=== PATIENT | female | born 1970 | race Caucasian/White ===

== ENCOUNTER 2017-09-10 16:05 | Emergency (ER) | payer BC ==
--- NOTE | 2017-09-10 16:21 | EDPHY ---
H & P Stated Complaint: esophageal stricture Time Seen by Provider: 09/10/17 16:10 HPI/ROS: CHIEF COMPLAINT: Esophageal stricture, un able to swallow HISTORY OF PRESENT ILLNESS: 46-year-old female with a history of esophageal stricture, status post dilation x4 presents with an esophageal obstruction. She was eating [place] fries approximately 1 hr ago. The [place] fries became lodged and she has been unable to swallow saliva. Last dilation was 2 years ago. REVIEW OF SYSTEMS: complete 10 point ROS negative except at noted in the HPI - Personal History LMP (Females 10-55): 22-28 Days Ago Current Tetanus Diphtheria and Acellular Pertussis (TDAP): Yes - Medical/Surgical History Hx Asthma: No Hx Chronic Respiratory Disease: No Hx Diabetes: No Hx Cardiac Disease: No Hx Renal Disease: No Hx Cirrhosis: No Hx Alcoholism: No Hx HIV/AIDS: No Hx Splenectomy or Spleen Trauma: No Other PMH: esophageal stricture - Social History Smoking Status: Never smoked Alcohol Use: Sober Additional Social History: [place] - Physical Exam Exam: General Appearance: Alert, pleasant Eyes: Pupils equal and round, no conjunctival pallor ENT, Mouth: Mucous membranes moist Neck: Normal inspection Respiratory: Lungs are clear to auscultation Cardiovascular: Regular rate and rhythm Gastrointestinal: Abdomen is soft and nontender Neurological: A&O, nonfocal, normal gait Skin: Warm and dry Extremities: Normal inspection Psychiatric: Mood and affect normal Constitutional: Initial Vital Signs Temperature (C) 36.9 C 09/10/17 16:12 Heart Rate 121 H 09/10/17 16:12 Respiratory Rate 18 09/10/17 16:12 Blood Pressure 123/81 H 09/10/17 16:12 O2 Sat (%) 97 09/10/17 16:12 O2 Delivery Mode Room Air Allergies/Adverse Reactions: No Known Allergies Allergy (Unverified 09/10/17 16:11) Home Medications: Medication Instructions Recorded NK [No Known Home Meds] 09/10/17 Medical Decision Making ED Course/Re-evaluation: Glucagon 1mg IV given. Consulted Dr. Osuna 163, if continues to have obstruction, c/b at 1730, plan for endoscopy then. 1740: pt vomited, obstruction relieved. Able to tolerate oral fluids. Will d/ c home. 1809: after pt left ED, Dr. Osuna called back. Will plan for endoscopy tomorrow am. I called the pt and told her to call Dr. Osuna at 8:30am. Clear liquids today. Prilosec bid. - Data Points Medications Given: Discontinued Medications Glucagon (Glucagon) 1 mg IVP EDNOW ONE Stop: 09/10/17 16:23 Last Admin: 09/10/17 16:39 Dose: 1 mg Departure - Departure Disposition: Home, Routine, Self-Care Clinical Impression: Esophageal stricture, Esophageal obstruction due to food impaction Condition: Good Instructions: Esophageal Stricture (ED) Additional Instructions: Stay on a liquid diet today. Prilosec twice daily. Return with recurrent symptoms or any concerns. Referrals: Jose Osuna MD [Medical Doctor] - As per Instructions
[2017-09-10] MEDS ORDERED: GLUCAGON HCL 1 MG VIAL IVP ONE (16:22)
[2017-09-10 18:11] VITALS: BP 115/69
== END 2017-09-10 18:09 | disposition home or self-care (01) ==
DX: K22.2 Esophageal obstruction (principal)
CPT/HCPCS: 96374; J1610